=== PATIENT | female | born 1950 | race Hispanic/Latino ===

== ENCOUNTER 2018-10-14 06:34 | Day surgery (SDC) | payer MEDICARE ==
[2018-09-30 11:05] VITALS: BMI 27.6
[2018-10-14 07:06] LABS: INR 1.03; PARTIAL THROMBOPLASTIN TIME 34.5 Seconds (26.9-38.3); PROTHROMBIN TIME 11.6 SECONDS (9.4-12.5)
[2018-10-14] MEDS ORDERED: Bupivacaine 0.5% 50 ML IJ ONE ×2 (07:39→08:25)
[2018-10-14] MEDS ORDERED: Midazolam 2 MG/2 ML VIAL ONE (07:55)
[2018-10-14] MEDS ORDERED: Propofol 10 mg/ml Inj (20 ML) ONE (07:55)
[2018-10-14] MEDS ORDERED: Rocuronium 10 mg/ml (5 ml) ONE (07:55)
[2018-10-14] MEDS ORDERED: CeFAZolin 1 gm in NS 100ml IVPB ONE (08:10)
[2018-10-14] MEDS ORDERED: Glycopyrrolate 0.2 mg/ml (2ml vial) ONE (08:55)
[2018-10-14] MEDS ORDERED: Neostigmine Methylsulfate 3mg/3ml Syringe IV ONE (08:56)
[2018-10-14] MEDS ORDERED: Morphine 2 mg/ml ISec IVP PRN (08:59)
[2018-10-14] MEDS ORDERED: Lactated Ringer's 1,000 ML IV SCH (09:00)
[2018-10-14] MEDS: Morphine 2 mg/ml ISec IVP PRN ×3 (09:21→09:57)
--- NOTE | 2018-10-14 09:21 | PCM.SURG1 ---
Surgeon's Initial Post Op Note - Surgeon's Notes Surgeon: Dr. Goodwin Welder Journeyman: Dr. Miller PGY3 Type of Anesthesia: General Endo Pre-Operative Diagnosis: incarcerated ventral hernia Operative Findings: same Post-Operative Diagnosis: same Operation Performed: laparoscopic incarcerated ventral hernia repair Specimen/Specimens Removed: none Estimated Blood Loss: EBL {In ML}: 5 Blood Products Given: N/A Drains Used: No Drains Date of Surgery/Procedure: 10/14/18 Time of Surgery/Procedure: 09:20
[2018-10-14] MEDS ORDERED: Morphine 4 mg/ml ISec ONE ×3 (09:24→10:01)
[2018-10-14] MEDS ORDERED: HYDROmorphone 0.5 mg/0.5 ml ISec IVP PRN ×2 (10:03→10:13)
[2018-10-14] MEDS ORDERED: HYDROmorphone 0.5 mg/0.5 ml ISec ONE (10:15)
[2018-10-14 11:16] VITALS: RESP 18; TEMP 98.1
[2018-10-14 12:04] VITALS: BP 120/56; PULSE 73; O2SAT 96
--- NOTE | 2018-10-16 08:14 | OP ---
PROCEDURE DATE: 10/14/2018 PREOPERATIVE DIAGNOSIS: Incarcerated ventral hernia. POSTOPERATIVE DIAGNOSIS: Incarcerated ventral hernia. PROCEDURE: Laparoscopic ventral hernia repair with mesh placement. DESCRIPTION OF PROCEDURE: The patient was brought into the operating room and was placed on the table in the supine position. General anesthesia was administered. A time-out was completed verifying correct patient and procedure site, positioning prior to the beginning of the procedure. The abdomen was prepped from xiphoid to pubis with chlorhexidine. The patient was draped in the usual sterile fashion. An incision was made along Nicolas's point, dissection was carried down to the level of fascia. The fascia was elevated and incised, entry into the peritoneum was confirmed via 12-mm Visiport. The abdomen was then insufflated with carbon dioxide to a pressure of 15 mmHg. The patient tolerated the insufflation well. A 5-mm trocar was then inserted mamie the left lower quadrant. The laparoscope was inserted and the abdomen was inspected. There were no signs of iatrogenic injury. All four quadrants of the abdomen were inspected with no signs of bleeding. A close look was taken to the posterior abdominal wall along the umbilicus where a defect was noted containing omental fat. Upon examining the abdominal wall, the hernia appeared to be incarcerated. A Symbotex composite mesh measuring 12 cm in circumference was used for the repair of this ventral hernia. Extracorporeally, the mesh was oriented and the corners were marked with a marking pen. The top, bottom, and center of the mesh was marked with a 0-Vicryl suture to serve as transfascial anchoring suture. The mesh was rolled into a tight cigar-like fashion and was introduced into the left upper quadrant 12-mm port. The mesh was placed within the peritoneal cavity without any complications than using the proper orientation and the patel placed initially. The mesh was unraveled using Prestige graspers. The prior orientation of the mesh was maintained throughout the entire procedure with the nonadhering hydrocellulose-coated side of the mesh facing the bowel. After proper positioning of the mesh, GraNee needle was used to pull the transfascial sutures out of the corresponding stab incisions. The suture was adjusted to provide adequate tension on the mesh. This resulted in the placement of the mesh in such a fashion as to provide gentle trampoline-like formation inside the abdomen covering the hernia defect with an adequate 5 cm overlap along the margins. After the transfascial suture was tied down, the mesh was tacked using a tacker. The tacks were placed in a circumferential fashion approximately 0.5 cm from the edge and approximately 1 cm from each other. was done with a second row of tack circumferentially, especially in the lower part of the mesh so as to prevent mesh migration and hernia recurrence. After the mesh was tacked in its entirety, the abdomen was allowed to collapse. The abdominal cavity was inspected and the hernia repair appeared satisfactory. The trocars were removed under direct visualization. No bleeding was noted, neither was trocar site bleeding. The laparoscope was withdrawn and the final 12-mm trocar removed, the abdomen was allowed to collapse. The 12-mm trocar site in the left upper quadrant was closed using UR 5-0 Vicryl and the deep dermal layer was approximated using 3-0 Vicryl. The skin was closed with 4-0 Monocryl and Dermabond was applied. The port sites and transfascial suture site was infiltrated with approximately 20 mL of 0.5% Marcaine. The patient tolerated the procedure well and was extubated successfully and was transferred to PACU in stable condition. Edison Miller DO Cornelius Scott MD
== END 2018-10-14 13:45 | disposition home or self-care (01) ==
LOC: SDS 06:34
PROVIDERS: ATTEND General Practice
DX: K43.6 Other and unspecified ventral hernia with obstruction, without gangrene (principal); I10 Essential (primary) hypertension; I25.10 Atherosclerotic heart disease of native coronary artery without angina pectoris; E11.9 Type 2 diabetes mellitus without complications; Z79.84 Long term (current) use of oral hypoglycemic drugs
CPT/HCPCS: 36415; 49653; 82948; 85610; 85730; C1781; J0690; J1170; J2001; J2250; J2270 ×2; J2405; J2704; J2710; J3010; J7120 ×2